=== PATIENT | male | born 1950 | race Caucasian/White ===

== ENCOUNTER 2016-10-08 05:53 | Day surgery (SDC) | payer MEDICARE ==
--- NOTE | 2016-10-06 15:15 | HP ---
DATE OF CLINIC: 10/05/2016 JAGDEEP LOWERY : 1950 PLANNED PROCEDURE: Left Knee Arthroscopic Partial Medial and Lateral Meniscectomies and Possible Chondroplasty DATE OF SURGERY: October 08, 2016 SURGEON: Pavel Estevez M.D. HISTORY OF PRESENT ILLNESS Jagdeep Lowery is a 66 year old male. * Medication list reviewed with patient allergy list reviewed with patient. * Tried NSAIDS * Has not tried Physical Therapy * Has not tried Injections The patient is a 66-year-old male who is an established patient at the office who has seen Dr. Grant in the past for a right total knee replacement back in October of 2010, who has had a new onset left knee pain. I actually saw the patient back in the beginning of the year regarding this pain and talk to the patient about his options. This was back in March of 2016. He states that since I have seen him he continues to have pain. He has pain on the medial aspect of his knee that has continued to have gotten worse. He has had an MRI which my initial impression was most of his pain is secondary to degenerative findings. At the time when I saw him back in March of 2016 he really had a minimal amount of pain. He had no catching or locking. The patient regularly lives in [place] as well as [place] and is actively going on RV trips. He states that he has had to curtail these because of persistent pain. Naeem saw the patient in mid-July and was concerned about degeneration of his knee and recommended a steroid injection. At the patient's appointment on August 17, 2016 the patient tolerated it well. He states that this did help his pain for about two weeks, however it has recurred. He is seen Dr. Hamilton his primary care provider who has given him Percocet but he would prefer not to take narcotics. He would like to know what he can do to help decrease his pain and discomfort and is here to discuss possible options. Today his would like to know if there is any other options besides knee replacement surgery that may benefit the patient. The patient states that he occasional he has locking or catching in the knee. He states that the medial side hurts worse than the outside. He has been taking regular anti-inflammatories like diclofenac with limited improvement. He would like to know my thoughts today and what can be done to help him. He states that ideally he would like to have another injection, but does understand that this may not be a great option for him and particularly since he just had one 3 weeks ago. After discussion and review of treatment options, both non-operative and surgical, he has elected to proceed with surgery and presents today preoperatively. CURRENT MEDICATION * Aspirin Adult Low Dose 81 MG Tablet Delayed Release 1 once a day 0 days, 0 refills * Atorvastatin Calcium 10 MG Tablet 1 once a day 0 days, 0 refills * Daily Multivitamin Capsule 1 once a day 0 days, 0 refills * Diclofenac Sodium 75 MG Tablet Delayed Release 1 twice a day 0 days, 0 refills * Glucosamine MSM Complex Tablet as directed 0 days, 0 refills * Lisinopril-Hydrochlorothiazide 20-25 MG Tablet 1 twice a day 0 days, 0 refills * MetFORMIN HCl 500 MG Tablet 2 twice a day 0 days, 0 refills * Oxycodone-Acetaminophen 5-325 MG Tablet as needed 0 days, 0 refills * Pioglitazone HCl 30 MG Tablet 1 once a day 30 days, 0 refills * Tamsulosin HCl 0.4 MG Capsule 1 once a day 0 days, 0 refills * TraMADol HCl 50 MG Tablet as directed: one tab by mouth every 12 hours as needed for pain, 30 days, 0 refills * Turmeric 450 MG Capsule as directed 0 days, 0 refills PAST MEDICAL/SURGICAL HISTORY Reported: Shoulder Arthroscopy. Medical: Cardiac problems stent, heart disease, joint problems Arthritis, Reported numbness, Reported tingling, an allergic reaction to anesthetic agents - vomiting, cardiac history, Diabetes Mellitus, history of Arthritis, Depression, and Hypertension. Surgical / Procedural: Surgical / procedural history right thumb fusion 2004 LAD stent 03/2007 Cardiac ablation 2007 for rapid heart rate > 200 Right Shoulder RC repair 1998 Cervical fusion (C 4-5-6) 11/05 Penile Implant, Removal of rectal abcess, replacement of a knee, Carpal Tunnel Surgery, Arthroscopy Right knee scope 06/04/[address] Grant, Cardiac surgery Cardiac ablation Stent implant and Back Surgery Cervical fusion. Diagnoses: Hypertension. Diabetes mellitus type II Sleep Apnea SOCIAL HISTORY Behavioral: Caffeine use. Not a current smoker and not chewing tobacco. Quit smoking. Smoking status: Former smoker. Alcohol: No consumption of alcohol and not using alcohol. Drug Use: Not using drugs. 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 ALLERGIES * Codeine Derivatives Reaction: Nausea/Vomiting/Diarrhea * Penicillins Reaction: unknown FAMILY HISTORY Father ill heart disease, RA Mother ill stroke diabetes hbp 2 children living Family medical history Mother- Heart disease, Stroke, Diabetes REVIEW OF SYSTEMS Systemic: No fever and no recent weight change. Cardiovascular: No chest pain or discomfort and no palpitations. Pulmonary: No cough and no wheezing. Gastrointestinal: No nausea, no vomiting, no abdominal pain, and no diarrhea. Hematologic: No easy bleeding (no blood clots). Neurological: No motor disturbances and no sensory disturbances. Skin: No skin lesions and no rash. PHYSICAL FINDINGS * Vitals taken 10/05/2016 10:20 am BP-Sitting L 124/68 mmHg 100 - 120/60 - 80 BP Cuff Size Regular Pulse Rate-Sitting 89 bpm 50 - 100 Temp-Oral 98 F 96 - 101 Height 65 in 64 - 74 Weight 252 lbs 123 - 215 Body Mass Index 41.9 kg/m2 Body Surface Area 2.18 m2 Pain Level 4 General Appearance: * Well developed. * In no acute distress. Eyes: General/bilateral: Extraocular Movements: * Normal. Lungs: * Clear to auscultation. * No wheezing was heard. * No rales/crackles were heard. Cardiovascular: Heart Rate and Rhythm: * Heart rate was normal. * Heart rhythm regular. Abdomen: Palpation: * Abdominal non-tender. Neurological: * Oriented to time, place, and person. Motor: * Dominant Hand = Left Hand. The patient is walking with a cane which is a big change from when I saw him last. He uses his cane in his left hand. He reports no problems with his right knee. Currently however he has an episode of catching in this knee for which he plans to see Dr. Grant about in November. When the patient walks down the hallway he has an antalgic gait. This is limited mainly due to the medial side left knee pain. PHYSICAL FINDINGS RIGHT EXTREMITY Knee General Appearance: no signs of contusion, well-healed midline incision of the right knee from a previous right TKA. No swelling or edema Neurologic: Gross sensation to light touch was present in the distribution of DP/SP nerves Vascular: capillary refill less then 2 seconds is present Motor: 5 out of 5 strength quad, EHL, TA, GA, peroneals Range of Motion AROM: 0 to 115 degrees PROM: 0 to 120 degrees Focused Exam Findings: Patella Pateller tilt: neutral Patella non tender to touch Knee Joint Medial joint line: non tender Lateral joint line: non tender No signs of mid-range flexion instability Stable to varus and valgus stress at 0 and 90 degrees PHYSICAL FINDINGS LEFT EXTREMITY Knee General Appearance: no signs of contusion, scars, swelling or edema. Pt has some pain with a valgus stress consistent with a Type 1 MCL strain. He is tender to touch on the medial and lateral joint lines. He is more painful on the medial side compared to the lateral side Neurologic: Gross sensation to light touch was present in the distribution of DP/SP nerves Vascular: capillary refill less then 2 seconds is present Motor: 5 out of 5 strength quad, EHL, TA, GA, peroneals Range of Motion AROM: 0 to 120 degrees PROM: 0 to 125 degrees Focused Exam Findings: Patella Pateller tilt: neutral Patella non tender to touch No audible crepitus Knee Joint Medial joint line: tender to touch over the medial joint line Lateral joint line: non tender Squat test with hyperflexion: mild pain medially Piotr exam: normal Anterior drawer: normal Bee maneuver: no snapping, pain negative Stable to varus and valgus stress at 0 and 30 degrees TESTS 09.10.2016 BUN=24 Cr=0.9 Zx=169 K=4.8 WJF=522 HCO3=25 WBC=7.1 HCT=42.7 Loc=088 IMAGING CXR: .--No acute cardiopulmonary problem is appreciated. X-rays obtained on August 17, 2016 demonstrates a well-placed right total knee arthroplasty. No signs of fracture, dislocation, or any signs of instability. X-rays specifically of the left knee demonstrate increase in medial sided compartment osteoarthritis. The patient has a moderate amount of posture arthritis on the left side compared to the right. No signs of fracture or dislocation. He does have a traction spur on the superior aspect of the patella. MRI of the left knee performed on March 03, 2016 was again reviewed. I told the patient that in reviewing x-ray that the patient does have degenerative findings of the cartilage in the knee. The report describes a medial meniscal tear were most of the patient is located as well as some marrow signal changes and possibly posttraumatic marrow edema on the medial tibial plateau and also a partially extruded lateral meniscus, however no tear is appreciated on this side. Some of the marrow signal is more significant on the medial tibial plateau consistent with a contusion posttraumatic marrow edema. I showed the patient is images and showed him these findings on the medial side. ASSESSMENT Pavel Estevez MD made the following assessments * Osteoarthritis of knee -left * Internal derangement of medial meniscus of knee -left PLAN * OTHER OxyCODONE HCl 5 MG TABS, as directed: one to two tabs by mouth every 4-6 hours as needed for pain, 7 days, 0 refills Pavel Estevez MD ordered the following therapy * Knee Arthroscopy (Left) with PMM, PLM and possible chondroplasty THERAPY * Patient fall risk screen positive. * Patient eligible for fall risk assessment. Patient received fall risk assessment. SURGICAL CONSENT We have discussed surgical options including left knee arthroscopic with possible lateral meniscal tear debridement, medial meniscal tear debridement, possible chondroplasty and nonoperative management. I told the patient that it is possible that all or none of his pain may improve. The goal of surgery is to possibly decrease his pain but it is possible that his pain may be more due to OA and he may require surgery in the future. The patient understands that this may not be a permanent fix for the patient. We spoke about possible complications related to the surgery such as infection, DVT, stiffness, worsening of his pain as well as anesthesia risks. After a lengthy description, the patient signed the consent form and we spoke about the post-op rehab plan. The patient was counseled in detail regarding the diagnosis, treatment options available, prognosis of each treatment option and the potential risks and complications. The risks of surgery include, but are not limited to, anesthetic , neurovascular complications, pulmonary embolism, deep vein thrombosis, wound dehiscence, failure of any or all of the discussed procedures, infection of the joint or surrounding soft tissue, need for revision surgery, chronic pain, limitations in activities of daily living, inability to return to work, and loss of normal range of motion or functional use of the extremity. There is the possibility of failure over time that may require additional operative or non-operative treatment. The patient acknowledged that there are a number of perioperative risks not mentioned here and would still like to proceed. The patient is aware of and understands these risks, and wishes to proceed with the proposed surgical procedure and other procedures as indicated at the time of surgery. The patient has seen his PCP for a preoperative medical risk assessment. The preoperative instructions were reviewed with the patient and all questions were answered. CARE TEAM Kiah Hamilton MD Family Practice BLP/sg
[~2016-10-08 05:53] MED LIST: IV START KIT ONE; LACTATED RINGERS 1,000 ML ONE
[2016-10-08] MEDS ORDERED: CLINDAMYCIN 600 MG PREMIX 50 ML IV PRN (06:00)
[2016-10-08] MEDS ORDERED: CLINDAMYCIN 600 MG PREMIX 50 ML IV ONE (06:28)
[2016-10-08] MEDS ORDERED: MIDAZOLAM HCL 1 MG/ML 2ML VIAL ONE (06:53)
[2016-10-08] MEDS ORDERED: FENTANYL 5 ML ONE (06:53)
[2016-10-08] MEDS ORDERED: BUPIVACAINE 0.25% (PRES FREE) 30 ML VIAL ONE (06:59)
[2016-10-08] MEDS ORDERED: SCOPOLAMINE 1.5 MG/72 HR 1 EACH PATCH TD ONE (07:07)
[2016-10-08] MEDS ORDERED: HYDROMORPHONE HCL 1 MG/ML SYRINGE IV PRN (07:16)
[2016-10-08] MEDS ORDERED: MEPERIDINE 25 MG/ML SYRINGE IV PRN (07:16)
[2016-10-08] MEDS ORDERED: ONDANSETRON 4 MG/2ML 2 ML VIAL IV PRN ×2 (07:16→09:39)
[2016-10-08] MEDS ORDERED: FENTANYL 100 MCG/2 ML VIAL IV PRN (07:16)
[2016-10-08] MEDS ORDERED: ATROPINE SULFATE 0.4 MG/1 ML VIAL IV PRN (07:16)
[2016-10-08] MEDS ORDERED: NALOXONE HCL 0.4 MG/ML VIAL IV PRN (07:16)
[2016-10-08] MEDS ORDERED: PROMETHAZINE HCL 25 MG/ML VIAL IM PRN (07:16)
[2016-10-08] MEDS ORDERED: LACTATED RINGERS 1,000 ML IV SCH ×2 (07:30→09:39)
[2016-10-08] MEDS ORDERED: PROTAMINE SULFATE 10 MG/ML IV ONE (07:53)
[2016-10-08] MEDS ORDERED: LIDOCAINE 2% (PRES FREE) 5 ML VIAL ONE (07:53)
[2016-10-08] MEDS ORDERED: ONDANSETRON 4 MG/2ML 2 ML VIAL ONE (07:53)
[2016-10-08] MEDS ORDERED: PROPOFOL 20 ML IV ONE (07:53)
[2016-10-08] MEDS ORDERED: EPHEDRINE SULFATE UD SYR 25 MG 25 MG/5 ML SYRINGE IV ONE (07:58)
[2016-10-08] MEDS ORDERED: HYDROMORPHONE HCL 2 MG/ML SYRINGE ONE ×2 (08:20→08:50)
[2016-10-08] MEDS ORDERED: KETOROLAC TROMETHAMINE 30 MG/ML 1 ML VIAL ONE (08:59)
--- NOTE | 2016-10-08 09:20 | PCMBPN ---
Brief Post Op Note: Date of Procedure: 10/08/16 Preoperative Diagnosis: 1. left knee medial and lateral meniscal tear and chondromalacia Postoperative Diagnosis: 1. left knee medial meniscal tear, medial femoral condyle chondromalacia, patellofemoral arthritis and loose bodies Procedure: left knee arthroscopic loose body removal, medial meniscal tear debridement, and chondroplasty Surgeon: Pavel Estevez MD Assist: None Anesthesia: GETA, 30mL 0.25% marcaine without epi injected into the arthroscopic incisions Findings: the patient had multiple cartilaginous loose bodies floating in the patellofemoral joint. Grade 2 patellofemoral chondromalacia, Grade 4 chondromalacia of a 20mm x 30mm medial femoral condyle lesion, Grade 4 lesion on the medial tibial plateau and medial meniscal tear, normal ACL and PCL, Grade 1 lateral sided chondromalacia and normal lateral meniscus Condition: extubated, stable vitals, transferred to pacu Complications: None IV Fluids: 900 mLs of LR Urine Output: 0 mLs Estimated Blood Loss: 20 mLs Tourniquet Time: [N/A] Specimens: [N/A] Implants: None Drains: [N/A] PLAN:WBAT on the LLE. ASA for DVT. Oxycodone for pain control.
[2016-10-08] MEDS ORDERED: LACTATED RINGERS 1,000 ML ONE (09:21)
[2016-10-08] MEDS ORDERED: ACETAMINOPHEN 325 MG TABLET PO PRN (09:39)
[2016-10-08] MEDS ORDERED: MORPHINE SULFATE 2 MG/ML SYRINGE IV PRN (09:39)
[2016-10-08] MEDS ORDERED: DIPHENHYDRAMINE HCL 50 MG/1 ML VIAL IV PRN (09:39)
[2016-10-08] MEDS ORDERED: OXYCODONE HCL 5 MG TABLET PO PRN (09:39)
[2016-10-08] MEDS ORDERED: MORPHINE SULFATE 4 MG/ML SYRINGE IV PRN (09:51)
[2016-10-08] MEDS ORDERED: MORPHINE SULFATE 10 MG/ML SYRINGE IV PRN (09:51)
[2016-10-08] MEDS ORDERED: OXYCODONE HCL 5 MG TABLET ONE (09:55)
--- NOTE | 2016-10-08 11:04 | RAD ---
KNEE LEFT 1 OR 2 VIEWS HISTORY: Status post left knee arthroscopy. COMPARISONS: 08/17/2016. FINDINGS: 2 views of the left knee demonstrate evidence of beaking of the tibial spine with irregularity of the articular surface of the medial femoral condyle. The knee joint spaces are relatively well-maintained on this examination. No lytic or blastic lesions are observed. IMPRESSION: 1. Stable left knee degenerative changes with irregularity of the articular surface of the medial femoral condyle.
--- NOTE | 2016-10-09 10:02 | OP ---
Jagdeep LOWERY : 1950 [id number] DATE OF PROCEDURE: October 08, 2016 PREOPERATIVE DIAGNOSES: Left knee medial and lateral meniscal tear in chondromalacia. POSTOPERATIVE DIAGNOSES: Left knee medial meniscal tear, medial femoral condyle chondromalacia, patellofemoral chondromalacia and loose bodies. PROCEDURE: LEFT KNEE ARTHROSCOPIC LOOSE BODY REMOVAL, MEDIAL MENISCAL TEAR DEBRIDEMENT AND ARTHROSCOPIC CHONDROPLASTY. SURGEON: Paevl Estevez M.D. TRAIN OPERATIONS SUPERVISOR: None. ANESTHESIA: General along with 30 mL of 0.25% Marcaine without epinephrine injected into the arthroscopic incisions. FINDINGS: The patient had multiple cartilaginous was bodies upon placing the camera into the patellofemoral joint. These were removed arthroscopically. The source of these was a large lesion on the medial femoral condyle which I would measure us 20 mm x 30 mm. This is grade 4 chondromalacia. The patient had a small area on the medial tibial plateau. The patellofemoral joint showed evidence of grade 2, patellofemoral chondromalacia this was more on the patella side than the trochlea. The patient had a grade 1 chondromalacia of the lateral compartment and normal lateral meniscus and a degenerative white on white medial meniscal tear which was debrided back to a stable rim. CONDITION: The patient was extubated with stable vital signs and transferred to the PACU. COMPLICATIONS: None. INTRAVENOUS FLUIDS: 900 mL of Lactate Ringer's. URINE OUTPUT: 0 mL ESTIMATED BLOOD LOSS: 20 mL SPECIMENS: N/A TOURNIQUET TIME: N/A IMPLANTS: None. DRAINS: N/A PLAN: The patient will be weight bearing as tolerated on the left lower extremity. Aspirin for DVT prophylaxis. Oxycodone for pain control. INDICATIONS: The patient is a 66-year-old male who has had persistent pain in his left knee that has not improved. I saw the patient, in March and he did not have any locking or catching at that time. Over the past fall he developed persistent pain and an indication of possible MCL strain. Because of his persistent pain he has been occasionally taking oxycodone for pain control. Because of this persistent discomfort we ultimately decided that arthroscopy may benefit the patient. I spoke to him prior to the surgery about the risks and benefits of nonoperative and surgical treatment. I told him that this may not be the last surgery for him but at least this would give us a diagnosis of what could be causing the patient's pain. After reviewing the risks and benefits of the procedure we decided to proceed. PROCEDURE DESCRIPTION: The patient was seen in the preoperative area where we confirmed the left side was the correct side. They agreed that the left side was the correct side and that our proposed procedure was a left knee arthroscopy with medial meniscal and possible lateral meniscal tear debridement. The patient's left knee was marked with my initials and the word "yes". I signed and confirmed that the H&P was correct and updated. At this point in time with the patient's leg signed, the patient was brought from the preoperative area to the operating theater where they were placed on the OR table. A safety belt was placed and the patient was placed asleep without incident. The patient's left lower extremity was then placed in a knee avilez and a tourniquet was placed, although it was not elevated for the procedure. The knee was then prepped and draped in sterile fashion first with a Chlorhexadine scrub and prep. Once the knee was prepped, the lateral peripatellar tendon incision was marked with a marking pen as well as the superolateral outflow portal. I then performed a final time out confirming that the left side was the correct side, that Clinda 600 mg had been given approximately 20 minutes prior to entering the room. The patient had SCD's on their left lower extremity for intraoperative DVT prophylaxis and xrays and MRI were up on the exam board. After everyone in the room confirmed that the left side was the correct side, 20 mL of 0.25% Marcaine without epinephrine was injected by our portal sites for postop pain relief. A #11 blade was now used with the knee flexed in 30 degrees of flexion to allow entry of my scope into the notch. With this in place I extended the knee placing the scope into the patellofemoral joint. I then used the #11 blade to make my lateral superior outflow portal. I then performed a diagnostic knee arthroscopy. Upon entering the knee. The patient showed evidence of chondromalacia of the patella on that undersurface. The patient had a significant number of cartilaginous appearing loose bodies all in the patellofemoral space. I then moved my scope into the trochlea where the patient had a fairly good appearing cartilage however on the medial femoral condyle the patient had a large area of sloughed cartilage. I estimate that this was a lesion that was 20 mm x 30 mm. I then placed the leg in a valgus position and opened the medial joint line. I then used a spinal needle a medial peripatellar incision after localizing this with a spinal needle. Once this was performed I used an #11 blade to incise the skin. I then used my arthroscopic probe to evaluate the knee. The patient had a medial meniscal tear which was [id number]. There was a loose flap of meniscal tissue. The patient had multiple areas throughout the condyle of loose bodies. I then evaluated the ACL and PCL which appeared to be normal. The patient had a very tight lateral compartment. I was able to inspect this. The patient had some evidence of grade 1 chondromalacia on the lateral femoral condyle, but a normal appearing lateral meniscus. At this point I placed the length that into a 30 degree valgus position. I proceeded to use a 3.5 incisor shaver to incise some loose fragments. I used a biter to the left to bring the meniscus back to a stable rim. I then reprobed this and made sure that the meniscus was stable without any loose flaps. I then performed a chondroplasty medial femoral condyle using the [employer] T2 wand at the edges and used a biter to free up some loose cartilaginous fragment hopefully forming a stable border on this large medial femoral condyle lesion. Because of the large size I did not think that it would be amenable to a microfracture. I then moved the scope to the patellofemoral joint. Here the patient had a number of loose bodies. I placed suction on my camera and placed my shaver on the lateral outflow cannula and proceeded to debride these loose bodies. I made sure to place my scope into the lateral gutter making sure that all of these loose bodies were removed. At this point I went back through the knee making sure that we had good hemostasis and everything appeared to be normal. The incision was now closed with 4-0 nylon simple sutures. Next, 20mL of 0.25% marcaine without epinephrine was injected at the portal sites. The patient's knee was checked for having good hemostasis and all needles counts were correct at the end of the case. The knee was covered with a DSD, LUCIAN wrap and a cryo-cuff. The patient was awoken without difficulty and taken to the recovery room. At this point I was happy with the procedure and I was ready to close. The patient will be weight-bearing as tolerated on this side. We will work on range of motion. I attempted to answer all of his questions. Job [id number] CC: [facility]
== END 2016-10-08 18:48 | disposition home or self-care (01) ==
LOC: SDC 05:53
PROVIDERS: ATTEND Orthopaedic Surgery
PROC: 0SBD4ZZ Excision of Left Knee Joint, Percutaneous Endoscopic Approach (ICD-10-PCS; principal; 2016-10-08)
PROC: 0SBD4ZZ Excision of Left Knee Joint, Percutaneous Endoscopic Approach (ICD-10-PCS; 2016-10-08)
DX: M23.204 Derangement of unspecified medial meniscus due to old tear or injury, left knee (principal); M94.262 Chondromalacia, left knee; M17.12 Unilateral primary osteoarthritis, left knee; M23.42 Loose body in knee, left knee; Z96.651 Presence of right artificial knee joint; Z79.82 Long term (current) use of aspirin; I10 Essential (primary) hypertension; E11.9 Type 2 diabetes mellitus without complications; G47.30 Sleep apnea, unspecified; Z87.891 Personal history of nicotine dependence; Z79.84 Long term (current) use of oral hypoglycemic drugs
CPT/HCPCS: 29881; G0289